=== PATIENT | female | born 1995 | race Caucasian/White ===

== ENCOUNTER 2016-11-23 20:54 | Emergency (ER) | payer SELFPAY ==
[~2016-11-23] VITALS: Ht 160 cm; Wt 52.2 kg
[2016-11-23] MEDS ORDERED: ANXIETY MED (21:05)
[2016-11-23] MEDS ORDERED: BIPOLAR MED (21:05)
== END 2016-11-23 22:18 | disposition left against medical advice (07) ==
LOC: SED 20:54
DX: Z53.21 Procedure and treatment not carried out due to patient leaving prior to being seen by health care provider (principal)

== ENCOUNTER 2016-11-23 22:28 | Emergency (ER) | payer SELFPAY ==
[~2016-11-23] VITALS: Ht 160 cm; Wt 52.2 kg
[~2016-11-23 22:28] MED LIST: ANXIETY MED; BIPOLAR MED
== END 2016-11-23 23:14 | disposition left against medical advice (07) ==
LOC: CED 22:28
DX: Z53.21 Procedure and treatment not carried out due to patient leaving prior to being seen by health care provider (principal)